=== PATIENT | female | born 1990 | race Caucasian/White ===

== ENCOUNTER 2017-05-17 10:11 | Emergency (ER) | payer OTHER ==
[~2017-05-17] VITALS: Ht 172.7 cm; Wt 78.0 kg
[2017-05-17 10:54] VITALS: Ht 172.7 cm; Wt 78.0 kg
--- NOTE | 2017-05-17 12:42 | ERD ---
ER Documentation Chief Complaint Date/Time DATE: 05/17/17 TIME: 12:40 Chief Complaint sob, cwp, intermittent fever x 2 weeks; HPI 26-year-old female presents emergency department for shortness of breath, productive cough that is on and off for about 2 weeks. Stated that she was at [facility] a week ago with the same complaint, eloped. Denies headache, dizziness, blurred vision, neck pain, shoulder pain, back pain , abdominal pain, nausea, vomiting, diarrhea, constipation, urinary symptoms, , possibility of being , recent exposure to any illness, recent antibiotic use in the last 3 months, trauma,fever, chills. Allergies to sulfa. Past medical history of anxiety. Surgical history of cholecystectomy. Medication: Alprazolam. Social: Not working at this time. Smokes a pack of cigarettes a day. Smokes medical marijuana. Occasional drinks alcoholic beverages. LMP was 7 days ago. A0. ROS All systems reviewed and are negative except as per history of present illness. Physical Exam Vitals Vital Signs Date Time Temp Pulse Resp B/P Pulse Ox O2 Delivery O2 Flow Rate FiO2 05/17/17 10:54 99.2 115 20 106/62 100 Physical Exam Const: [] Head: Atraumatic Eyes: Normal Conjunctiva ENT: Normal External Ears, Nose and Mouth. Neck: Full range of motion..~ No meningismus. Resp: Clear to auscultation bilaterally. No crepitus. Cardio: Regular rate and rhythm, no murmurs Abd: Soft, non tender, non distended. Normal bowel sounds Skin: No petechiae or rashes Back: No midline or flank tenderness Ext: No cyanosis, or edema Neur: Awake and alert Psych: Normal Mood and Affect Result Diagram: 05/17/17 1410 05/17/17 1410 Results 24 hrs Laboratory Tests Test 05/17/17 14:10 White Blood Count 11.810^3/ul Red Blood Count 3.5210^6/ul Hemoglobin 10.2g/dl Hematocrit 30.4% Mean Corpuscular Volume 86.4fl Mean Corpuscular Hemoglobin 29.0pg Mean Corpuscular Hemoglobin Concent 33.6g/dl Red Cell Distribution Width 12.8% Platelet Count 77035^3/UL Mean Platelet Volume 9.6fl Neutrophils % 71.8% Lymphocytes % 21.5% Monocytes % 5.0% Eosinophils % 0.9% Basophils % 0.3% Nucleated Red Blood Cells % 0.0/100WBC Neutrophils # (Manual) 8.410^3/ul Lymphocytes # 2.510^3/ul Monocytes # 0.610^3/ul Eosinophils # 0.110^3/ul Basophils # 0.010^3/ul Nucleated Red Blood Cells # 0.010^3/ul Prothrombin Time 14.4Sec Prothrombin Time Ratio 1.1 INR International Normalized Ratio 1.12 Activated Partial Thromboplast Time 40.0Sec D-Dimer 2691.54ng/ml D-Dimer Comment Sodium Level 136mmol/L Potassium Level 3.5mmol/L Chloride Level 102mmol/L Carbon Dioxide Level 25mmol/L Anion Gap 13 Blood Urea Nitrogen 8mg/dl Creatinine 0.58mg/dl Glucose Level 147mg/dl Calcium Level 9.1mg/dl Total Bilirubin 0.2mg/dl Direct Bilirubin 0.00mg/dl Indirect Bilirubin 0.2mg/dl Aspartate Amino Transf (AST/SGOT) 22IU/L Alanine Aminotransferase (ALT/SGPT) 27IU/L Alkaline Phosphatase 110IU/L Troponin I < 0.012ng/ml Total Protein 7.5g/dl Albumin 3.4g/dl Globulin 4.10g/dl Albumin/Globulin Ratio 0.82 Current Medications Medications (Trade) Dose Ordered Sig/Mckay Route PRN Reason Start Time Stop Time Status Last Admin Dose Admin Sodium Chloride (NS) 1,000 ml @ 1,000 mls/hr Q1H STAT IV 05/17/17 13:33 05/17/17 14:32 DC Acetaminophen/ Hydrocodone Bitart ([place] (10/325)) 1 tab ONCE ONCE PO 05/17/17 15:30 05/17/17 15:31 DC Procedures/MDM Examination: Please see physical examination. Disease process was explained to the patient family member. They both agreed with the diagnostic exam, treatment, plan of care. EKG: Sinus tachycardia with a ventricular rate of 111 bpm. No evidence of acute myocardial infarction. No evidence of ischemia. Chest x-ray: Impression: Scattered bilateral hazy opacities suggesting multiple pulmonary nodules. Differential diagnosis is broad, and CT chest/abdomen/pelvis with IV contrast is recommended. Case was discussed with supervising physician, Dr. Jeffrey Rojas who suggested for me to do a CT chest, abdomen and pelvis with IV contrast. He also suggested for me to fully workup the patient. Registered nurses tried to insert IV multiple times but unsuccessful. Relief charge nurse was about to insert an IV with ultrasound but found out that patient had eloped at around 16:21. Nurses search for the patient to ER but unable to be found. Was last seen at around 16:10. At this time patient was responsive with no respiratory or acute distress. Departure Diagnosis: Primary Impression: Shortness of breath Condition: Stable ELMIRA KNUTSON May 17, 2017 12:42
--- NOTE | 2017-05-17 13:22 | RADRPT ---
PROCEDURE: Chest radiograph series. CLINICAL INDICATION: Chest pain. Cough. TECHNIQUE: PA and lateral chest x-ray. COMPARISON: None available FINDINGS: The cardiomediastinal silhouette is unremarkable. There is hazy increased density in the left mid kendall ng base obscuring the mid hemidiaphragm. There is also a ovoid opacity in the right lateral midlung zone measuring up to 2.0 cm, and the left upper lobe measuring up to 1.8 cm. There may be an additio nal rounded opacity in the right apex multiple overlying osseous structures limits evaluation.. No p leural effusion is seen. The osseous structures are unremarkable. IMPRESSION: 1. Scattered bilateral hazy opacities suggesting multiple pulmonary nodules. Differential diagnosis is broad, and CT chest is recommended. RPTAT: KK .Vincent Gonzalez MD, MD Date Time Electronically viewed and signed by .Vincent Gonzalez MD, MD on 05/17/2017 13:22 .B/
[2017-05-17] MEDS ORDERED: SOD CHLORIDE 0.9% 1,000 ML IV STA (13:33)
[2017-05-17 14:19] LABS: BASOPHILS % 0.3 % (0.0-2.0); EOSINOPHILS # 0.1 10^3/ul (0.0-0.5); EOSINOPHILS % 0.9 % (0.0-7.0); HEMATOCRIT 30.4 % (37.0-47.0); HEMOGLOBIN 10.2 g/dl (12.0-16.0); LYMPHOCYTES # 2.5 10^3/ul (0.8-2.9); LYMPHOCYTES % 21.5 % (15.0-51.0); MEAN CORPUSCULAR HGB CONC 33.6 g/dl (32.0-37.0); MEAN CORPUSCULAR VOLUME 86.4 fl (82.0-101.0); MEAN PLATELET VOLUME 9.6 fl (7.4-10.4); MONOCYTE # 0.6 10^3/ul (0.3-0.9); NEUTROPHILS % 71.8 % (39.0-77.0); PLATELET COUNT 314 10^3/UL (140-415); RED BLOOD COUNT 3.52 10^6/ul (4.20-5.40); RED CELL DISTRIBUTION WIDTH 12.8 % (11.5-14.5); WHITE BLOOD COUNT 11.8 10^3/ul (4.8-10.8)
[2017-05-17 14:34] LABS: INR 1.12; PROTIME 14.4 Sec (12.2-14.2); PT RATIO 1.1
[2017-05-17 14:42] LABS: ALANINE AMINOTRANSFERASE 27 IU/L (13-69); ALBUMIN 3.4 g/dl (3.3-4.9); ALBUMIN/GLOBULIN RATIO 0.82; ALKALINE PHOSPHATASE 110 IU/L (42-121); ANION GAP 13 (8-16); ASPARTATE AMINO TRANSFERASE 22 IU/L (15-46); BILIRUBIN,INDIRECT 0.2 mg/dl (0-1.1); BILIRUBIN,TOTAL 0.2 mg/dl (0.2-1.3); BLOOD UREA NITROGEN 8 mg/dl (7-20); CALCIUM 9.1 mg/dl (8.4-10.2); CARBON DIOXIDE 25 mmol/L (21-31); CHLORIDE 102 mmol/L (97-110); CREATININE 0.58 mg/dl (0.44-1.00); GLUCOSE 147 mg/dl (70-220); POTASSIUM 3.5 mmol/L (3.5-5.1); SODIUM 136 mmol/L (135-144); TOTAL PROTEIN 7.5 g/dl (6.1-8.1)
[2017-05-17 14:55] LABS: TROPONIN-I < 0.012 ng/ml (0.00-0.12)
[2017-05-17 14:58] LABS: D-DIMER 2691.54 ng/ml (<460)
[2017-05-17] MEDS ORDERED: HYDROCODONE/APAP (10/325) TAB PO ONE (15:30)
== END 2017-05-17 17:32 | disposition left against medical advice (07) ==
LOC: FTE 10:11
DX: R06.02 Shortness of breath (principal); F17.210 Nicotine dependence, cigarettes, uncomplicated
CPT/HCPCS: 71020; 80053; 84484; 85025; 85378; 85610; 85730; 93005; J7030; Z7502